=== PATIENT | male | born 1980 | race Caucasian/White ===

== ENCOUNTER 2022-06-11 09:35 | Emergency (ER) | payer OTHER, SELFPAY ==
[2022-06-11 09:40] VITALS: BP 135/80; PULSE 102; RESP 16; TEMP 36.9; O2SAT 99
--- NOTE | 2022-06-11 09:41 | ED.URI ---
HPI - URI/Sore Throat General Chief Complaint: Upper Respiratory Infection Stated Complaint: cold flu Time Seen by Provider: 06/11/22 09:41 Source: patient and RN notes reviewed History of Present Illness HPI Narrative: patient is a 42-year-old male who presents to urgent care with complaints of body aches, sore throat and congestion for the last 3 days. Patient's spouse was diagnosed with strep today and the facility. Patient has been taking Tylenol and ibuprofen. No other acute complaints. No acute distress noted. Patient aware of the plan of care. Some parts of this dictation were generated by voice recognition software and may contain typographical and/or grammatical inaccuracies. Related Data Home Medications Medication Instructions Recorded Confirmed atorvastatin 40 mg tablet 40 mg PO DAILY 06/11/22 06/11/22 lisinopril 30 mg tablet 30 mg PO DAILY 06/11/22 06/11/22 metformin 500 mg tablet 500 mg PO DAILY 06/11/22 06/11/22 Allergies Allergy/AdvReac Type Severity Reaction Status Date / Time No Known Allergies Allergy Verified 06/11/22 09:48 Review of Systems Review of Systems: CONSTITUTIONAL: Denies fever, chills, or sweats. EYES: Denies visual changes, redness, or discharge. ENT: reports congestion, postnasal drainage, sore throat CARDIOVASCULAR: Denies chest pain, palpitations, or edema. RESPIRATORY: Denies cough or dyspnea. GASTROINTESTINAL: Denies abdominal pain, nausea, vomiting, or diarrhea. GENITOURINARY: Denies dysuria or hematuria. SKIN: Denies rash or itching. MUSCULOSKELETAL: Denies back pain, joint pain. Reports body aches NEUROLOGIC: Denies headache, numbness, or weakness. All other systems reviewed are negative, except as documented in HPI. PMFSH Comments At the time of my signature, I reviewed and agree with the nursing past medical, surgical, social, and family history. There is no relevant family history pertinent to the patient complaint. Exam Narrative: GENERAL: This is a well-nourished, well-developed patient, in no apparent distress. HEAD: normocephalic, atraumatic. EYES: PERRL. Sclera clear/white. Vision is grossly intact. EARS: External ears normal, auditory canals clear and without drainage, TMs normal without perforation. Hearing grossly intact. NOSE: External nose normal with no obvious nasal discharge, nares without redness, clear to yellow rhinorrhea. THROAT: Mucous membranes moist, Moderate erythema to posterior pharynx is mild bilateral tonsillar edema/ exudate with moderate postnasal drainage NECK: Neck supple, non-tender without lymphadenopathy CARDIOVASCULAR: Regular rate and rhythm without murmurs, gallops, or rubs. RESPIRATORY: Clear to auscultation. Breath sounds equal bilaterally. No wheezes, rales, or rhonchi. SKIN: warm, intact with no suspicious lesions or rash, good texture and turgor. NEURO: awake, alert, and oriented to person, place and time. There were no obvious focal neurologic abnormalities. EXTREMITIES: No clubbing, cyanosis, or edema. Course Course Level of Care: Express Care Visit Vital Signs Vital signs: Vital Signs Temperature 98.5 F 06/11/22 09:40 Pulse Rate 102 H 06/11/22 09:40 Respiratory Rate 16 06/11/22 09:40 Blood Pressure 135/80 06/11/22 09:40 Pulse Oximetry 99 06/11/22 09:40 Oxygen Delivery Room Air 06/11/22 09:40 Temperature 98.5 F 06/11/22 09:40 Pulse Rate 102 H 06/11/22 09:40 Respiratory Rate 16 06/11/22 09:40 Blood Pressure 135/80 06/11/22 09:40 Pulse Oximetry 99 06/11/22 09:40 Oxygen Delivery Room Air 06/11/22 09:40 Reviewed MDM - URI/Sore Throat MDM Narrative Medical decision making narrative: advised patient complete oral antibiotic regimen as prescribed. Be sure to drink medication. The aware that you are considered contagious for 24 hours after the start of medication it must be fever free. Change her toothbrush within 2-3 days. Use Benadryl as needed for symptom rel
== END 2022-06-11 10:00 | disposition home or self-care (01) ==
PROVIDERS: Emergency Provider Nurse Practitioner Family
DX: J02.9 Acute pharyngitis, unspecified (principal); Z20.818 Contact with and (suspected) exposure to other bacterial communicable diseases; E78.00 Pure hypercholesterolemia, unspecified; I10 Essential (primary) hypertension; E11.9 Type 2 diabetes mellitus without complications
CPT/HCPCS: 99213; G0463